=== PATIENT | female | born 1985 | race Caucasian/White ===

== ENCOUNTER 2023-06-03 17:33 | Emergency (ER) | payer OTHER, SELFPAY ==
[2023-06-03 17:56] VITALS: BP 145/72; PULSE 101; RESP 16; TEMP 36.7; O2SAT 100
--- NOTE | 2023-06-03 18:01 | ED.URI ---
HPI - URI/Sore Throat General Chief Complaint: Upper Respiratory Infection Stated Complaint: sorethroat Source: patient and RN notes reviewed History of Present Illness HPI Narrative: 38-year-old female presents to urgent care with complaints of sore throat, fevers, and body aches. Patient states her symptoms started on Friday night while she was on vacation. Patient states that returned today and she continues to have these symptoms. Patient denies any vomiting, diarrhea, chest pain, shortness of breath, ear pain. Patient has been taking Ibuprofen at home. Related Data Home Medications Medication Instructions Recorded Confirmed norethindrone (contraceptive) 0.35 0.35 mg PO DAILY 06/03/23 06/03/23 mg tablet (Denita) Allergies Allergy/AdvReac Type Severity Reaction Status Date / Time Sulfa (Sulfonamide AdvReac Mild Rash Verified 06/03/23 18:05 Antibiotics) Review of Systems Review of Systems: Pertinent positives and pertinent negatives per HPI. PMFSH Comments At the time of my signature, I reviewed and agree with the nursing past medical, surgical, social, and family history. There is no relevant family history pertinent to the patient complaint. Exam Narrative: GENERAL: This is a well-nourished, well-developed patient, in no apparent distress. HEAD: normocephalic, atraumatic. EYES: Sclera clear/white. Vision is grossly intact. EARS: External ears normal, auditory canals clear and without drainage, TMs normal without perforation. Hearing grossly intact. NOSE: External nose normal with no obvious nasal discharge, nares without redness, no rhinorrhea. THROAT: Mucous membranes moist, posterior pharynx erythremic. no exudate NECK: Neck supple, non-tender without lymphadenopathy, masses or thyromegaly. CARDIOVASCULAR: Regular rate and rhythm without murmurs, gallops, or rubs. RESPIRATORY: Clear to auscultation. Breath sounds equal bilaterally. No wheezes, rales, or rhonchi. GASTROINTESTINAL: Abdomen soft, non-tender, nondistended. Bowel sounds are active. No hepato-splenomegaly, or palpable masses. No guarding. SKIN: warm, intact with no suspicious lesions or rash, good texture and turgor. NEURO: awake, alert, and oriented to person, place and time. There were no obvious focal neurologic abnormalities. Course Course Level of Care: Express Care Visit Vital Signs Vital signs: Vital Signs Temperature 98.1 F 06/03/23 17:56 Pulse Rate 101 H 06/03/23 17:56 Respiratory Rate 16 06/03/23 17:56 Blood Pressure 145/72 H 06/03/23 17:56 Pulse Oximetry 100 06/03/23 17:56 Oxygen Delivery Room Air 06/03/23 17:56 Temperature 98.1 F 06/03/23 17:56 Pulse Rate 101 H 06/03/23 17:56 Respiratory Rate 16 06/03/23 17:56 Blood Pressure 145/72 H 06/03/23 17:56 Pulse Oximetry 100 06/03/23 17:56 Oxygen Delivery Room Air 06/03/23 17:56 reviewed MDM - URI/Sore Throat MDM Narrative Medical decision making narrative: After 24 hours on antibiotics throw tooth brush away and start using a new one. Increase your Vitamin C. Do not share drinks. Take Motrin alternating with Tylenol for pain and/or fever alternating every 4 hours. Increase fluids, avoid caffeine. Take a probiotic daily or eat a low sugar yogurt while taking the antibiotic. Follow up with Primary provider if not getting better this week Differential Diagnosis Differential diagnosis: Likely upper respiratory infection, viral infection and pharyngitis Lab Data Attestation: I reviewed the patient's lab results. Labs: Strep Screen Positive Group A Strep *(Reference Range: Negative)* Critical Care Time Critical Care Time Critical Care Time: No Discharge Plan Discharge Clinical Impression: Pharyngitis Qualifiers: Pharyngitis/tonsillitis etiology: streptococcus Qualified Code(s): J02.0 - Streptococcal pharyngitis Patient Disposition: Home, S
== END 2023-06-03 18:16 | disposition home or self-care (01) ==
PROVIDERS: Emergency Provider Nurse Practitioner Family
DX: J02.0 Streptococcal pharyngitis (principal); Z86.16 Personal history of COVID-19
CPT/HCPCS: 87880; 99203; G0463

== ENCOUNTER 2024-10-23 11:32 | Emergency (ER) | payer OTHER, SELFPAY ==
--- NOTE | 2024-10-23 11:51 | ED_ITS ---
HPI - Female Genitourinary General Chief complaint: Urogenital-Female Stated complaint: Uti symptoms Time Seen by Provider: 10/23/24 11:40 Source: patient Mode of arrival: ambulatory Limitations: no limitations History of Present Illness HPI Narrative: Patient is a 39-year-old female who presents with 1 week of burning with urination, frequency and suprapubic pressure. Denies any fever, chills, nausea, vomiting, diarrhea, flank pain. MD elicited complaint: dysuria Related Data Home Medications ?Medication ?Instructions ?Recorded ?Confirmed ?Last Taken ?Type drospirenone (contraceptive) 4 mg 4 mg PO DAILY 10/23/24 Unknown History (28) tablet (Slynd) levothyroxine 50 mcg tablet mcg 10/23/24 Unknown History Allergies Allergy/AdvReac Type Severity Reaction Status Date / Time Sulfa (Sulfonamide Allergy Mild Rash Verified 10/23/24 11:58 Antibiotics) codeine AdvReac Mild Gastrointestinal Verified 10/23/24 11:58 Upset Review of Systems Review of Systems: All systems reviewed & are unremarkable except as noted in HPI and below Constitutional: Constitutional: Denies chills, Denies fever(s), Denies headache(s), Denies malaise and Denies weakness Eyes: Eyes: Denies change in vision, Denies eye discharge and Denies irritation ENT: Denies otalgia, Denies headache(s), Denies nasal congestion, Denies nasal discharge, Denies sinus pain and Denies sore throat Cardiovascular: Cardiovascular: Denies chest pain, Denies edema, Denies palpitations and Denies dyspnea Respiratory: Respiratory: Denies cough and Denies dyspnea Gastrointestinal: Gastrointestinal: Denies abdominal pain, Denies diarrhea, Denies nausea and Denies vomiting Genitourinary: Genitourinary: Denies hematuria, Reports nocturia, Reports dysuria, Denies flank pain and Reports urinary urgency Musculoskeletal: Musculoskeletal: Denies back pain and Denies numbness Integumentary/Breasts: Skin/Breast: Denies pruritus and Denies rash Neurologic: Denies headache(s), Denies numbness and Denies weakness Psychiatric: Psychiatric: Reports no additional psychiatric complaints Endocrine: Endocrine: Denies palpitations PMFSH Comments At time of signature, agree with nursing past medical, surgical, social and family history. There is no relevant family history pertinent to the presenting complaint. Exam Const: General: cooperative, healthy appearing, comfortable, no acute distress and well nourished Nutritional Appearance: well nourished Orientation/consciousness: patient oriented x3 HENMT: Head: normocephalic and atraumatic Ears: external ears normal Face/Nose/Sinus: Normal external nose present, Normal nares present and normal facial exam Face and sinus: normal facial exam Eyes: General: appearance normal, both eyes and all related structures Pupils: Equal, round and reactive pupils present EOM: EOMs intact bilaterally Neck: Neck: normal visual inspection, full ROM and supple Chest: Chest palpation & inspection: normal inspection of the chest Resp: Effort & Inspection: normal respiratory effort and able to speak in complete sentences Cardio: Rate: regular rate Rhythm: regular rhythm GI: Inspection: normal to inspection GI Palp: No abdominal tenderness and Yes Soft to palpation : General: Yes no CVA tenderness Back/Spine/Pelvis: Back: no CVA tenderness Skin: General skin exam: normal color and no rashes or lesions noted Neuro: General: patient oriented x3 and moves all extremities Cranial nerves: Yes Equal, round and reactive pupils present Extrem: General: normal to inspection and full ROM Psych: Appearance: grossly normal and well kempt Course Course Emergency Course: Patient is aware of diagnosis, understands and agrees to treatment plan. Anticipatory guidance given. Patient agrees to follow-up as directed and is aware of reasons to seek care at the emergency department. Portions of this record may have been created with voice recognition software Level of Care: Express Care Visit Vital Signs Vital signs: Vital Signs Temperature 36.5 C 10/23/24 11:53 Pulse Rate 83 10/23/24 11:53 Respiratory Rate 10/23/24 11:53 Blood Pressure 144/68 H 10/23/24 11:53 Pulse Oximetry 100 10/23/24 11:53 Oxygen Delivery Room Air 10/23/24 11:53 Temperature 36.5 C 10/23/24 11:53 Pulse Rate 10/23/24 11:53 Respiratory Rate 10/23/24 11:53 Blood Pressure 144/68 H 10/23/24 11:53 Pulse Oximetry 100 10/23/24 11:53 Oxygen Delivery Room Air 10/23/24 11:53 Reviewed MDM - Female Genitourinary MDM Narrative Medical decision making narrative: Exam findings and UA show probable UTI; patient is non-toxic appearing and is in no distress. No CMT, adnexal tenderness, or evidence of pelvic etiology. Patient is appropriate for outpatient treatment and follow-up. Differential Diagnosis Differential diagnosis: Likely urinary tract infection, bacterial vaginosis, trichomoniasis, cervicitis, vaginitis and cystitis Medical Records Attestation: I reviewed the patient's medical records. Lab Data Attestation: I reviewed the patient's lab results. Labs: Lab Results 10/23/24 Range/Units 12:01 POC Urine Color Yellow POC Urine Clarity Cloudy POC Urine pH 7.0 POC Ur Specif [place] 1.015 POC Urine Protein Negative (Negative) POC Ur Glucose (UA) Negative (Negative) POC Urine Ketones Negative (Negative) POC Urine Blood 2+ (Negative) POC Urine Nitrite Negative (Negative) POC Urine Bilirubin Negative (Negative) POC Urine Urobilinogen 0.2 POC U Leukocyte Esteras 1+ (Negative) Discharge Plan Discharge Clinical Impression: Urinary tract infection Qualifiers: Urinary tract infection type: acute cystitis Hematuria presence: with hematuria Qualified Code(s): N30.01 - Acute cystitis with hematuria Patient Disposition: Home, Self-Care Condition: Stable Instructions: Urinary Tract Infection in Women (ED) Additional Instructions: We will send a urine culture to the lab, based on your symptoms and urine dip we will start treatment today. If culture comes back and bacteria is not susceptible to antibiotic, your prescription may change. Your symptoms should improve within a day of starting antibiotics, but you should finish all the antibiotic pills you get. Otherwise your infection might come back Continue with increased water intake. Take Tylenol or ibuprofen as needed for pain or fever. Follow-up with primary care provider for urine recheck or see ER visit if condition worsens with high fever, nausea, vomiting, severe back pain Your blood pressure was elevated above 120/80 today at Urgent Care. This puts you above the threshold for follow up visit with a primary care provider. High blood pressure does not usually cause any symptoms, however it may lead to kidney failure, stroke, heart disease just to name a few if untreated . Many people are anxious when seeing a provider or nurse. As a result, you are not diagnosed with hypertension at this time unless your blood pressure is persistently high at two office visits at least one week apart. Some things that can help lower blood pressure are lifestyle modifications, such as light exercise, decreased salt in diet, and weight loss. It is important to follow up with a PCP about this within 1 week. Patient Language: Arabic Prescriptions: New cephalexin 500 mg capsule 500 mg PO BID 5 Days Qty: 10 0RF phenazopyridine [Pyridium] 200 mg tablet 200 mg PO TID 3 Days Qty: 9 0RF No Action Slynd 4 mg (28) tablet 4 mg PO DAILY levothyroxine 50 mcg tablet Follow-up/Referrals: Miller,Reese [Other] - 3 Days Time of Disposition: 12:47
[2024-10-23 11:53] VITALS: BP 144/68; PULSE 83; RESP 18; TEMP 36.5; O2SAT 100
[2024-10-23 12:05] LABS: EDUAAPPEAR Cloudy; EDUABILI Negative (Negative); EDUABLOOD 2+ (Negative); EDUACOLOR1 Yellow; EDUAGLUCOSE Negative (Negative); EDUAKETONE Negative (Negative); EDUALEUKO 1+ (Negative); EDUANITRATE Negative (Negative); EDUAPROTEIN Negative (Negative); EDUASPGRAVITY 1.015; EDUAUROBILI 0.2
--- OUTSIDE RECORDS SUMMARY | 2024-10-28 08:58 | XMS_ITS | Referral Summary ---
Author Organization [place] [id number] Address [address] [place] [address] Care Team Providers Care Furnace Utility Operator Name Role Phone Reese Bhatt MD Primary Care Provider + Encounters Date Type Department Care Team Description 08/20/2024 11:37 AM CAR DUMPER - 08/20/2024 11:59 PM CAR DUMPER Hospital Encounter [facility] [address] [place] [id number] Other abnormal and inconclusive findings on diagnostic imaging of breast Discharge Disposition: Discharge to home or self care from Last 3 Months Social History Tobacco Use Types Packs/Day Years Used Date Smoking Tobacco: Never Assessed Comments Unknown Sex and Gender Information Value Date Recorded Sex Assigned at Not on file Legal Sex Female 9:44 AM CDT Gender Identity Not on file Sexual Orientation Not on file Last Filed Vital Signs Vital Sign Reading Time Taken Comments Blood Pressure 123/67 07/13/2019 3:59 PM CDT Pulse 93 07/13/2019 3:59 PM CDT Temperature 36.8 ??C (98.3 ??F) 07/13/2019 3:59 PM CD T Respiratory Rate - - Oxygen Saturation 98% 07/13/2019 3:59 PM CDT Inhaled Oxygen Concentration - - Weight 86.2 kg (190 lb) 07/13/2019 3:59 PM CDT Height 157.5 cm (5' 2 ) 08/20/2024 11:47 AM CAR DUMPER Body Mass Index 34.75 07/13/2019 3:59 PM CDT Plan of Treatment Not on file Procedures Procedure Name Priority Date/Time Associated Diagnosis Comments DIAGNOSTIC MAMMOGRAM BILATERAL W ALEX Schedule Routine, Read Routine (OP Routine) 08/20/2024 11:52 AM CAR DUMPER Other abnormal and inconclusive findings on diagnostic imaging of breast from Last 3 Months Results * Diagnostic Mammogram Bilateral W Alex (08/20/2024 11:52 AM CAR DUMPER) Anatomical Region Laterality Modality Breast Bilateral Mammography 08/20/2024 4:47 PM CAR DUMPER Impressions 08/20/2024 4:47 PM CAR DUMPER No evidence to suggest malignancy is seen. ??The tiny nodule in question on the left is consistent with a tiny intramammary lymph node. ??It is unchanged. ??The patient may continue screening mammography as per ACR guidelines. OVERALL FINAL ASSESSMENT: [id number] Electronically signed by: Temitope Ryan M.D. Narrative 08/20/2024 4:47 PM CAR DUMPER EXAMINATION: BILATERAL DIGITAL DIAGNOSTIC MAMMOGRAM AND DIGITAL BREAST TOMOSYNTHESIS HISTORY: Follow-up COMPARISON: Multiple studies dating back to 06/17/2023 TECHNIQUE: ?? Full field digital mammographic views of bilateral rest were performed, including computer aided detection (CAD) and digital breast tomosynthesis (DBT). BREAST PARENCHYMAL COMPOSITION: There are scattered areas of fibroglandular density. MAMMOGRAM FINDINGS: No suspicious calcifications or suspicious masses are seen. ??The tiny nodule posterior upper outer quadrant on the left is consistent with an intramammary lymph node and is stable. ??There is no architectural distortion or skin thickening. ??There is no axillary adenopathy seen. Natalie Gaffney NP IMG MAMMO PROCEDURES Fin al Result from Last 3 Months Insurance [facility] CHOICE [facility] H[facility]/PPO Address: [address] [address] [place] [address] Care Teams Furnace Utility Operator Relationship Specialty Start Date End Date Reese Bhatt MD PCP - General Family Medicine 05/02/23
--- OUTSIDE RECORDS SUMMARY | 2024-10-28 08:58 | XMS_ITS | Data Portability ---
Author Organization [employer] , [facility] Address [address] [place] [address] Assessment No assessment recorded. Plan of Treatment Reminders Order Date Submit Date Provider Last Modified By Organization Details Last Modified Time Details Appointments None recorded. Lab TSH, serum, reflex free T4 2023 024 [employer], [address] [place] [address], [address], 4 10:46:31 T4, free, serum 2023 024 [employer], [address] [place], [address], 4 10:46:33 TSH, serum or plasma 2023 024 [employer] [facility], [address] [place], [address], 4 07:42:41 TSH, serum or plasma 2023 024 [place] [address] [employer] [facility], [address] [place], [address], 4 14:04:08 TSH + free T4, serum 2023 024 [employer], [address] [place] [address], [address], 4 12:40:57 T3, free, serum or plasma 2023 024 [employer], [address] [place], [address], 12:40:58 Referral None recorded. Procedures None recorded. Surgeries None recorded. Imaging MAMMO, diagnostic, digital, unilateral - Left 2023 anen [facility], [address] [facility] [place], [address], 4 09:51:17 US, breast, unilateral - Left, Ultrasound as indicated 2023 zayra castillo [facility], [address] [facility] [place], [address], 4 15:37:29 Medication Orders Slynd 4 mg (28) tablet 2023 [facility] #[id number], [address], [place], [address], 4 10:22:50 Patient TargetsNo targets recorded. Patient Instructions Encounter Date Encounter Id Patient Instructions Last Modified By Organization Details Last Modified Time 12/08/2023 [id number] - Continue takin g Synthroid as prescribed and monitor for any changes in symptoms. - Monitor menstrual cycle on the new control (Splenda) for another month or two and report any changes or concerns. - Await scheduling of diagnostic mammogram appointment and attend the scheduled appointment. - Report any worsening symptoms or new concerns to the healthcare provider. [email or web address] Not available 12/08/2023 14:21:48 Discussed with t liu patient her hypothyroidism, menstrual irregularities, and mammogram follow-up. Reviewed the importance of monitoring her thyroid levels and adjusting her medication as needed. Advised the patient that it may take a few more months for her menstrual cycle to normalize on the new control. Informed the patient that she is due for a follow-up mammogram and will ensure the order is sent and the appointment is scheduled. [email or web address] Not available 12/08/2023 14:21:49 03/08/2024 [id number] - Check levothyroxine levels today and if stable, repeat in six months and then annually. - Choose the most convenient location for follow-up visits, either with the current doctor or the previous one, depending on the patient's preference. [email or web address] Not available 03/15/2024 12:06:17 09/21/2024 [id number] A healthy lifestyle: care instructions [email or web address] Not available 09/21/2024 10:22:48 Following the [employer] Food Guide: Care Instructions [email or web address] Not available 09/21/2024 10:22:48 exercise program : getting started bnotzke Not available 09/21/2024 10:22:48 contraception information bnotzke Not available 09/21/2024 10:22:48 Reason for Referral None Reported. Results Created Date Observation Date Name Description Value Unit Range Abnormal Flag Note LastModifiedBy Organization Detail LastModifiedTime 12/09/19 24 12/09/2023 TSH W/REF JOSE TO FT4 TSH w/reflex to FT4 1.16 mIU/L normal Refer ence Range > or = 20 Years 0.40- 4.50 Pregn chris Range s First trime ster 0.26- 2.66 Secon d trime ster 0.55- 2.73 Third trime ster 0.43- 2.91 NO COLLE CTION DATE RECEI RICK. WE HAVE USED THE DATE THE SPECI MEN WAS RECEI RICK BY THIS LABOR ATORY THE COLLE CTION DATE. IF THIS IS INCOR RECT, PLEAS E CONTA CT CLIEN T SERVI KITTY. PHONE NUMBE R: [phone] Not Available [employer] [facility] [address] [place], [address], 12/09/2023 07:42:40 10/13/19 24 10/14/2023 T4, FREE T4, free 0.99 NG/dL 0.89 - 1.76 normal Not Available [address], [address], 10/14/2023 12:09:28 10/13/19 24 10/14/2023 TSH W/ REFLE X TSH 5.84 mIU/L 0.55 - 4.78 high Refer ence Range Femal e aged 18-Ad ult: 0.55- 4.78 Pregn chris Refer ence Range s First Trime ster 0.26- 2.66 Secon d Trime ster 0.55- 2.73 Third Trime ster 0.43- 2.91 Not Available [facility] [address] [place] [address], [address], 10/14/2023 12:09:29 11/10/19 24 11/11/2023 TSH W/ REFLE X TO T4 TSH 2.17 mIU/L 0.55 - 4.78 normal Refer ence Range Femal e aged 18-Ad ult: 0.55- 4.78 Pregn chris Refer ence Range s First Trime ster 0.26- 2.66 Secon d Trime ster 0.55- 2.73 Third Trime ster 0.43- 2.91 Not Available [address], [address], 11/11/2023 10:46:31 11/10/19 24 11/11/2023 T4, FREE T4, free 1.04 NG/dL 0.89 - 1.76 normal Not Available [facility] [address] [place] [address], [address], 11/11/2023 10:46:32 03/08/20 24 03/09/2024 TSH W/ REFLE X TO FREE, T4 TSH 0.63 mIU/L 0.55 - 4.78 normal Refer ence Range Femal e aged 18-Ad ult: 0.55- 4.78 Pregn chris Refer ence Range s First Trime ster 0.26- 2.66 Secon d Trime ster 0.55- 2.73 Third Trime ster 0.43- 2.91 Not Available [facility] [employer] [address] [place] [address], [address], 03/09/2024 12:32:37 09/21/20 24 09/22/2024 TSH W/ T4, FREE TSH 1.79 mIU/L 0.55 - 4.78 normal Refer ence Range Femal e aged 18-Ad ult: 0.55- 4.78 Pregn chris Refer ence Range s First Trime ster 0.26- 2.66 Secon d Trime ster 0.55- 2.73 Third Trime ster 0.43- 2.91 Not Available [address], [address], 09/22/2024 12:40:57 09/21/20 24 09/22/2024 TSH W/ T4, FREE T4, free 1.46 NG/dL 0.89 - 1.76 normal Not Available [address], [address], 09/22/2024 12:40:57 09/21/20 24 09/22/2024 T3, FREE T3, free 3.0 pg/mL 2.3 - 4.2 normal Not Available [address], [address], 09/22/2024 12:40:58 10/28/19 24 10/28/2023 US, trans vagin al No observ ation record ed. [facility] [address], [facility] [place], [address], 10/30/2023 09:34:17 12/02/19 24 06/17/2023 US, gideon t, compl ete No observ ation record ed. [facility] [address] [facility] [place], [address], 12/09/2023 09:37:08 12/03/19 24 06/17/2023 US, gideon t, compl ete No observ ation record ed. [address] [place], [address], 12/08/2023 15:42:58 01/27/20 24 01/20/2024 MAMMO , diagn ostic , digit al, unila teral No observ ation record ed. [email or web address] [address] [place], [address], 01/31/2024 09:27:02 08/20/20 24 08/20/2024 MAMMO , diagn ostic , digit al, bilat eral No observ ation record ed. [email or web address] [address] , [place], [address], 08/23/2024 15:08:56 Result Notes None recorded. Problems Name Problem SNOMED Code Status Onset Date Resolution Date Notes Provider Name and Address Organization Details Recorded Time Gestatio n period, 34 weeks [id number] Completed 201812/22/2020 34 weeks gestatio n of pregnanc y; Progress : Stable Added By: Michele Garber Add to Current Problems : NO ProblemS tatus: Resolve Not Available [facility] 21:09:04 Gestatio n period, 13 weeks 56583190 Completed 201804/30/2019 13 weeks gestatio n of pregnanc y; Progress : Stable Added By: Jayyln Nieves Add to Current Problems : NO ProblemS tatus: Resolve Not Available [facility] 21:09:06 Gestatio n period, 28 weeks 56057927 Completed 201812/22/2020 28 weeks gestatio n of pregnanc y; Progress : Stable Added By: Fariba Ambriz Add to Current Problems : NO ProblemS tatus: Resolve Not Available [facility] 2 21:09:05 Gestatio n period, 36 weeks 50030044 Completed 201812/22/2020 36 weeks gestatio n of pregnanc y; Progress : Stable Added By: Anup Gutierrez Add to Current Problems : NO ProblemS tatus: Resolve Not Available [facility] 21:09:08 Gestatio n period, 30 weeks 57847785 Completed 201812/22/2020 30 weeks gestatio n of pregnanc y; Progress : Stable Added By: Nany Zamora Add to Current Problems : NO ProblemS tatus: Resolve Not Available [facility] 2 21:09:09 Gestatio n period, 24 weeks 919324868 Completed 201804/30/2019 24 weeks gestatio n of pregnanc y; Progress : Stable Added By: Yesenia Mustafa Add to Current Problems : NO ProblemS tatus: Resolve Not Available [facility] 2 21:09:08 Gestatio n period, 37 weeks 77603745 Completed 201812/22/2020 37 weeks gestatio n of pregnanc y; Progress : Stable Added By: Michele Garber Add to Current Problems : NO ProblemS tatus: Resolve Not Available [facility] 2 21:09:07 Gestatio n period, 9 weeks 577328 Completed 201804/30/2019 9 weeks gestatio n of pregnanc y; Progress : Stable Added By: Rachelle Ayon Add to Current Problems : NO ProblemS tatus: Resolve Not Available [facility] 2 21:09:10 Gestatio n period, 16 weeks 29379981 Completed 201804/30/2019 16 weeks gestatio n of pregnanc y; Progress : Stable Added By: Fariba Ambriz Add to Current Problems : NO ProblemS tatus: Resolve Not Available [facility] 2 21:09:03 Christina ry postpart um mood disturba nce 92843131 Completed 201812/22/2020 Postpart um mood disturba nce; Progress : Stable Added By: Michele Garber Add to Current Problems : NO ProblemS tatus: Resolve Not Available [facility] 2 21:09:08 Uterine size for dates discrepa ncy Completed 201812/22/2020 Uterine size-hill e discrepa ncy, third trimeste r; Progress : Stable Added By: Bill Wilkins Add to Current Problems : NO ProblemS tatus: Resolve Not Available [facility] 2 21:09:14 Pregnanc y, childbir th and puerperi um finding Completed 201812/22/2020 Encounte r for supervis ion of normal first pregnanc y, third trimeste r; Progress : Stable Added By: Michele Garber Add to Current Problems : NO ProblemS tatus: Resolve Not Available [facility] 21:09:12 Pregnanc y, childbir th and puerperi um finding Completed 201804/30/2019 Encounte r for supervis ion of normal first pregnanc y, first trimeste r; Progress : Stable Added By: Jaylyn Nieves Add to Current Problems : NO ProblemS tatus: Resolve Not Available [facility] 2 21:09:07 Gestatio n period, 20 weeks 69571576 Completed 201804/30/2019 20 weeks gestatio n of pregnanc y; Progress : Stable Added By: Jaylyn Nieves Add to Current Problems : NO ProblemS tatus: Resolve Not Available [facility] 2 21:09:11 Pregnanc y, childbir th and puerperi um finding Completed 201804/30/2019 Encounte r for supervis ion of normal first pregnanc y, second trimeste r; Progress : Stable Added By: Yesenia Mustafa Add to Current Problems : NO ProblemS tatus: Resolve Not Available [facility] 2 21:09:08 Lochia finding Completed 201812/22/2020 Encounte r for routine postpart um follow-u p; Progress : Stable Added By: Michele Garber Add to Current Problems : NO ProblemS tatus: Resolve Not Available [facility] 2 21:09:03 Gestatio n period, 38 weeks 19029056 Completed 201812/22/2020 38 weeks gestatio n of pregnanc y; Progress : Stable Added By: Michele Garber Add to Current Problems : NO ProblemS tatus: Resolve Not Available [facility] 2 21:09:05 Single liveborn born in hospital by vaginal delivery [id number] 102 Completed 201812/22/2020 Single liveborn , delivere d vaginall y; Progress : Stable Added By: Jaxon Bruce Add to Current Problems : NO ProblemS tatus: Resolve Not Available [facility] 2 21:09:12 Gestatio n period, 32 weeks 6092319 Completed 201812/22/2020 32 weeks gestatio n of pregnanc y; Progress : Stable Added By: Jaxon Bruce Add to Current Problems : NO ProblemS tatus: Resolve Not Available [facility] 2 21:09:14 Antenata l screenin g Completed 201812/22/2020 Encounte r for antenata l screenin g for Streptoc occus B; Progress : Stable Added By: Anup Gutierrez Add to Current Problems : NO ProblemS tatus: Resolve Encounte r for other specifie d antenata l screenin g; Progress : Stable Added By: Michele Garber Add to Current Problems : NO ProblemS tatus: Resolve; Start Date : 12/17/19 19 Not Available [facility] 2 21:09:02 Antenata l screenin g for malforma tion Completed 201804/30/2019 Encounte r for antenata l screenin g for malforma tions; Progress : Stable Added By: Yesenia Mustafa Add to Current Problems : NO ProblemS tatus: Resolve Not Available [facility] 2 21:09:04 Hypothyr oidism 33797057 Active 2023 Carmella Wild MD [address] [place], [address] , [facility] [employer] [facility] 4 08:18:32 Migraine with aura 1625152 Active 2023 JASMIN GOLDEN DENNISE- [address] [place], [address] , [facility] [employer] [facility] 4 14:46:33 Problem Notes None recorded. Procedures Surgical History Date Name Laterality Status Provider Name and Address Organization Details Recorded Time 4 Most Recent Mammogram completed Neal Burrell [facility] - [facility] 09/21/2024 09:52:26 3 Date of Last Pap Smear completed Sejal Gaffney [facility] 11/10/2023 16:09:43 Imaging Results Imaging Date Name Status LastModified by Organization Details LastModified Time 10/28/2023 US, transvaginal completed iain Olvera [address], [place], [address], 10/30/2023 09:34:17 06/17/2023 US, breast, complete completed [facility] [address] [place], [address], 12/09/2023 09:37:08 06/17/2023 US, breast, complete completed [email or web address] [address] [place], [address], 12/08/2023 15:42:58 01/20/2024 MAMMO, diagnostic, digital, unilateral completed [email or web address] [address] [place], [address], 01/31/2024 09:27:02 08/20/2024 MAMMO, diagnostic, digital, bilateral completed [email or web address] [address] [place], [address], 08/23/2024 15:08:56 Procedure Notes None recorded. Medical Equipment None Reported. Allergies Allergen ID Allergen Name Allergen Category Reaction Reaction Severity Criticality Documentation Date Start Date Code Code System Note Provider Name and Address Organization Details Recorded Time [id number] 3193487x5 2824e codeine sulfate medicatio n Not available Not available Not available 07/27/20212017 68168 RxNorm Sever ity: Moder ate; Not Available Not Available Not Available [id number] 294439815 2643861n2 2824e sulfabenz amide Not available Not available Not available Not available 07/27/20212017 11177 RxNorm Sever ity: Moder ate; Not Available Not Available Not Available [id number] 980751611 1812477s6 2824e Shellfish (substanc e) food,medi cation Not available Not available Not available 07/27/20212018 95334 9006 SNOMED Sever ity: Moder ate; Not Available Not Available Not Available [id number] 661415926 7510750m1 2824e shellfish derived food,medi cation Not available Not available Not available 03/27/2022 62129 UNK Not Available Not Available Not Available [id number] [id number] [id number] 2824e cat dander environme nt Not available Not available Not available 03/27/2022 37737 UNK Not Available Not Available Not Available [id number] 099691242 [id number] 2824e house dust allergeni c extract environme nt,medica tion Not available Not available Not available 03/27/2022 55186 9 RxNorm Not Available Not Available Not Available [id number] 100023850 4728663f3 2824e mold extract environme nt Not available Not available Not available 03/27/2022 02668 8 RxNorm Not Available Not Available Not Available [id number] 621118995 8255999g0 2824e Canis lupus familiari s extract environme nt Not available Not available Not available 03/27/2022 94160 4 RxNorm Not Available Not Available Not Available Medications Name Sig Start Date Stop Date Status Note LastModified by Organization Details LastModified Time on/go covid-19 antigen self-test kit 03/27 completed Not Available Not Available Not Available amoxicill in 500 mg capsule TAKE 1 CAPSULE BY MOUTH EVERY 12 HOURS 10/13 completed Not Available Not Available Not Available azithromy real 250 mg tablet TAKE 2 TABLETS BY MOUTH TODAY, THEN TAKE 1 TABLET DAILY FOR 4 DAYS 03/27 completed Not Available Not Available Not Available miconazol e nitrate 2 % topical cream APPLY TO AFFECTED AREA TWICE A DAY IN THE MORNING AND IN THE EVENING 04/29 completed Not Available Not Available Not Available fluconazo le 150 mg tablet TAKE 1 TABLET BY MOUTH EVERY 72 HOURS FOR 2 DAYS 12/03 completed Not Available Not Available Not Available Lotrisone 1 %-0.05 % topical cream Apply small amount to affected area BID 06/29 completed Lotrison e 0.05%/1% Cream RxNorm: 849207 Allow Substitu tion: True Refill Denied: No Edited by: Kait Roberts) on 06/09/20 Stopped by: Kait Roberts) on 06/29/20 19 Not Available Not Available Not Available meloxicam 15 mg tablet TAKE 1 TABLET BY MOUTH EVERY DAY 10/16 completed Not Available Not Available Not Available ciproflox acin 500 mg tablet TAKE 1 TABLET BY MOUTH TWICE A DAY FOR 3 DAYS 04/29 completed Not Available Not Available Not Available levothyro xine 25 mcg tablet TAKE 1 TABLET BY MOUTH EVERY DAY 12/07 completed Not Available Not Available Not Available Vitamin tablet 12/22 completed Multivit farah RxNorm: 0 Allow Substitu tion: True Refill Denied: No Refill DateOccu rred: 12/17/19 Edited by: Grace Vogel ) on 12/23/19 Stopped by: Grace Vogel ) on 12/23/19 21 Not Available Not Available Not Available prednisol one acetate 1 % eye drops,neeraj pension INSTILL 1 DROP INTO BOTH EYES 4 TIMES A DAY 03/27 completed Not Available Not Available Not Available ciproflox acin 0.3 % eye drops INSTIL 2 DROP INTO THE EYE(S) EVERY4 HOURS FOR 7 DAYS 03/27 completed Not Available Not Available Not Available levothyro xine 50 mcg tablet TAKE 1 TABLET BY MOUTH EVERY DAY active Not Available Not Available No t Available azelastin e 137 mcg (0.1 %) nasal spray INSTILL 2 SPRAYS INTO EACH NOSTRIL TWICE A DAY 04/29 completed Not Available Not Available Not Available epinephri ne 0.3 mg/0.3 mL injection , auto-inje ctor USE IN CASE OF EMERGENC Y active Not Available Not Available No t Available methylpre dnisolone 4 mg tablets in a dose pack TAKE 6 TABLETS ON DAY 1 DIRECTED ON PACKAGE AND DECREASE BY 1 TAB EACH DAY FOR A TOTAL OF 6 DAYS 12/03 completed Not Available Not Available Not Available albuterol sulfate HFA 90 mcg/actua tion aerosol inhaler INHALE 2 PUFFS BY MOUTH EVERY 4 HOURS NEEDED active Not Available Not Available No t Available norethind kyle (contrace ptive) 0.35 mg tablet TAKE 1 TABLET BY MOUTH EVERY DAY 10/28 completed Not Available Not Available Not Available fluticaso ne propionat e 50 mcg/actua tion nasal spray,neeraj pension INSTILL 2 SPRAYS INTO WACH NOSTRIL EVERY DAY 04/29 completed Not Available Not Available Not Available ipratropi um bromide 21 mcg (0.03 %) nasal spray USE 2 SPRAYS IN EACH NOSTRIL TWICE A DAY 03/27 completed Not Available Not Available Not Available Ortho Tri-Cycle n (28) 0.18 mg(7)/0.2 15 mg(7)/0.2 5 mg(7)-35 mcg tablet Take 1 tablet(s ) by mouth daily as directed . 12/16 completed Ortho Tri-Cycl en 28 Triphasi c Tablet RxNorm: 662602 Allow Substitu tion: True Refill Denied: No Not Available Not Available Not Available tobramyci n 0.3 %-dexamet hasone 0.1 % eye drops,neeraj pension INSTILL 1 DROP INTO BOTH EYES 4 TIMES A DAY 04/29 completed Not Available Not Available Not Available breast pump For use of lactatin g mother 12/22 completed breast pump Allow Substitu tion: True Refill Denied: No Edited by: Grace Vogel ) on 12/23/19 21 Stopped by: Grace Vogel ) on 12/23/19 21 Not Available Not Available Not Available Zyrtec 11/10 completed Zyrtec RxNorm: 04217 Allow Substitu tion: True Refill Denied: No Refill DateOccu rred: 12/19/19 18 Edited by: Kait Roberts) on 06/09/20 19 Stopped by: Kait Roberts) on Not Available Not Available Not Available Advair HFA 45 mcg-21 mcg/actua tion aerosol inhaler 10/16 completed Advair HFA 45-21 mcg/actu ation Inhalati on HFA Aerosol Inhaler RxNorm: 627570 Allow Substitu tion: True Refill Denied: No Refill DateOccu rred: 12/19/19 18 Edited by: Caty Browning ) on 08/25/20 19 Stopped by: Caty Browning ) on Not Available Not Available Not Available Zyrtec 10 mg capsule Take by oral route. active Not Available Not Available No t Available Estarylla 0.25 mg-35 mcg tablet take 1 tablet by oral route once daily 10/13 completed Not Available Not Available Not Available Slynd 4 mg (28) tablet Take 1 tablet every day by oral route. 2023 active Not Available Not Available Not Avai labheidi Vitals Date Recorded Body height Provider Name an d Address Organization Details Last Updated DateTime 11/10/2023 157.48 cm Sejal Gaffney [facility] - [facility] 11/10/2023 15:55:14 Date Recorded Body mass index (BMI) Body weight Provider Name and Address Organization Details Last Updated DateTime 11/10/2023 26.7 kg/m2 73370.49 g [place]al [place]ney [place] [facility] 11/10/2023 16:09:09 Date Recorded Body temperature Provider Name a nd Address Organization Details Last Updated DateTime 11/10/2023 97.6 [degF] Sejal Gaffney MD - [facility] 11/10/2023 16:09:14 Date Recorded Body height Provider Name an d Address Organization Details Last Updated DateTime 12/08/2023 157.48 cm Valentina Nan MD - [facility] 12/08/2023 13:50:53 Date Recorded Body height Provider Name an d Address Organization Details Last Updated DateTime 03/08/2024 157.48 cm Tom Louise [place] [facility] 03/08/2024 15:32:21 Date Recorded Body mass index (BMI) Body weight Provider Name and Address Organization Details Last Updated DateTime 03/08/2024 24.5 kg/m2 08498.1 g Tom [place] [facility] 03/08/2024 15:38:25 Date Recorded Body height Provider Name an d Address Organization Details Last Updated DateTime 05/19/2024 157.48 cm Glenmichaelwilfredo Indra [place] [facility] 05/19/2024 14:21:01 Date Recorded Body mass index (BMI) Body weight Provider Name and Address Organization Details Last Updated DateTime 05/19/2024 25.2 kg/m2 57125.75 g Glenmichaelwilfredo Indra [place] [facility] 05/19/2024 14:29:42 Date Recorded Body temperature Provider Name a nd Address Organization Details Last Updated DateTime 05/19/2024 97.2 [degF] Neal Burrell [place] [facility] 05/19/2024 14:29:46 Date Recorded Body height Provider Name an d Address Organization Details Last Updated DateTime 09/21/2024 157.48 cm Neal Burrell [facility] - [facility] 09/21/2024 09:49:41 Date Recorded Systolic blood pressure Diastolic blood pressure Provider Name and Address Organization Details Last Updated DateTime 11/10/2023 118 mm[Hg] 72 mm[Hg] Sejla Monroelister MD - [facility] 11/10/2023 16:09:05 Date Recorded Systolic blood pressure Diastolic blood pressure Provider Name and Address Organization Details Last Updated DateTime 12/08/2023 122 mm[Hg] 74 mm[Hg] Valentina Montana MD - [facility] 12/08/2023 13:54:20 Date Recorded Systolic blood pressure Diastolic blood pressure Provider Name and Address Organization Details Last Updated DateTime 03/08/2024 118 mm[Hg] 72 mm[Hg] Tom [place] MD - [facility] 03/08/2024 15:38:14 Date Recorded Systolic blood pressure Diastolic blood pressure Provider Name and Address Organization Details Last Updated DateTime 05/19/2024 122 mm[Hg] 72 mm[Hg] Neal Burrell [facility] 05/19/2024 14:29:29 Social History Question Answer Notes LastModified by Organizat ion Details LastModified Time Tobacco Smoking Status [facility] 03/27/2022 16:35:50 What Is Your Level Of Alcohol Consumption? Occasional Information not available 03/27/2022 Are You Blind Or Do You Have Difficulty Seeing? No Information not available 03/27/2022 Are You Currently Employed? Yes [email or web address] Information not available 09/21/2024 Are You Deaf Or Do You Have Serious Difficulty Hearing? No Information not available 03/27/2022 What Type Of Diet Are You Following? REGULAR Information not available 03/27/2022 Do You Or Have You Ever Used E-cigarettes Or Vape? Never Used Electronic Cigarettes Information not available 03/27/2022 How Many Children Do You Have? 1 [email or web address] Information not available 10/16/2022 What Is Your Relationship Status? Information not available 03/27/2022 Are You Sexually Active? Yes Information not available 03/27/2022 Do You Use Any Illicit Or Recreational Drugs? No Information not available 03/27/2022 Do You Or Have You Ever Used Any Other Forms Of Tobacco Or Nicotine? No [email or web address] Information not available 12/03/2022 Sex: Unknown Functional Status Question Answer Note LastModified by Organizat ion Details LastModified Time What is your exercise level? Occasional Information not available 03/27/2022 Mental Status None recorded. Family History Relationship Description Onset Age of this Age Resolved Age Notes LastModified by Organization Details LastModified Time Paternal Aunt Malignant tumor of breast [email or web address] Not available 2023 09:34:42 Unspecified Relation Malignant tumor of breast Not available 03/07 16:35:43 Medical History Condition Response Asthma Y Hypothyroidism Y Seasonal allergies Y Gynecological History Statement/Question Response Flow Light Date of last HPV 04/28/2023 Date of LMP 09/01/2024 HPV Vaccine N Duration of Flow (days) 21 Most Recent Mammogram 08/20/2024 Current Control Method BCPs Age at Menarche 14 Date of Last Colonoscopy Most Recent Bone Density Frequency of Cycle (Q days) Inconsistent Date of Last Pap Smear 04/28/2023 Obstetrics History GPAL:G 1 P 1 0 0 1 Type Value Multiple Births 0 Full Term 1 Induced 0 Spontaneous 0 Premature 0 Living 1 Ectopics 0 Total 1 Past Encounters Encounter ID Performer Location Encounter Start Date Encounter Closed Date Diagnosis/Indication Diagnosis SNOMED-CT Code Diagnosis ICD10 Code Diagnosis Note [id number] Kimberly Laurent CNM [facility] [address] [place] [address] 03/27/2022 16:29:04 03/27/2022 17:33:36 Gynecologic examination 10398426 Z01.419 Surveillan ce of contraception 413793349 Z30.40 [facility] 770923257 Z30.09 [id number] ELVIRA HAMILTON MD [facility] [address] [place] [address] 10/16/2022 10:05:11 10/16/2022 11:31:33 Candidiasis of skin 12130821 B37.2 Breast problem 004597991 N64.9 [id number] ELVIRA HAMILTON MD [facility] [address] [place] [phone] 12/03/2022 16:50:25 12/04/2022 14:41:28 Breast problem 823442800 N64.9 [id number] Kimberly Laurent CNM [facility] [address] [place] [address] 04/29/2023 09:03:27 04/29/2023 17:15:08 Gynecologic examination 93085947 Z01.419 Screening for malignant neoplasm of cervix 482166349 Z12.4 Surveillan ce of contraception 852725512 Z30.[address] [facility] care education 733108447 Z30.09 Experienci ng migraines with aura, will switch OCP to progestero ne only Depression screening 171 456026 Z13.31 Surveillan ce of oral contraception 223705316 Z30.41 Pain of breast 55403143 N64.4 [id number] Kimberly Laurent CNM [address] [address] 10/13/2023 12:06:41 10/13/2023 16:58:52 Loss of hair 682220510 L65.9 Abnormal u terine bleeding 4406465885 9100 N93.9 Reports break through bleeding with norethindr one. Will trial switch to slynd as pt is not estrogen candidate and does not want IUD, nexplanon, or depo. [id number] Kimberly Laurent CNM [facility] [address] [place] [address] 10/28/2023 15:26:48 10/29/2023 12:00:09 Abnormal uterine bleeding 8440381746 9100 N93.9 Ultrasound results reviewed. Will continue slynd. Hypothyroidism 55696760 E03.9 Followup in 2 weeks for labs if not seen endocrine by then [id number] Kimberly Laurent CNM [address] [address] 11/10/2023 15:50:24 11/10/2023 17:32:44 Hypothyroidism 47932442 E03.9 await results for titration [id number] Carmella Wild MD [address] [address] 12/08/2023 13:49:28 12/08/2023 17:43:01 Hypothyroidism 85287733 E03.9 Synthroid 50 mcg. Repeat TSH. Await results. Mammography abnormal 168 911388 R92.8 Surveillan ce of contraception 417765271 Z30.41 continue Slynd. Patient reports having plenty of refills. [id number] Carmella Wild MD [address] [address] 03/08/2024 15:23:18 03/08/2024 16:04:43 Hypothyroidism 98171005 E03.8 The patient has achieved a stable level of levothyrox ine, but it is suggested to check the levels once more to ensure stability, as thyroid levels can fluctuate. The patient is advised to have their thyroid levels checked every six months for a while and then annually once the levels are consistent ly stable. Additional diagnosis detail: Other specified hypothyroi dism [id number] JASMIN GOLDEN [address] [address] 05/19/2024 14:18:29 05/19/2024 17:27:16 Hypothyroidism 10678344 E03.8 Migraine with aura 98674 06 G43.109 Contracept sylvia use education 57619336 Z30.09 Contracept sylvia counseling : Discussed options including OCPs, NuvaRing, Nexplanon, hormonal and copper IUDs. Discussed risks, efficacy, non contracept sylvia benefits, and side effects of each option, including risk of VTE with hormonal contracept ion and uterine perforatio n, expulsion, infection with IUD. Pt can only use progestero ne only method due to hx of migraine with aura. Pt declines Depo, IUD, or Nexplanon. Mid-cycle bleeding 92265 0006 N92.0 Pt has been on SLYND since October. Reports that she will get a full 7 day period during the middle of the pill pack. States during her period week she will have light spotting. Pt will try to skip period week and continue to new pack. Sal murillo thirty minutes spent with patient in consultati on (>50% face-to-fa ce). Patient labs and notes were reviewed. Patient questions were answered. Additional patient care was ann mauro [id number] JASMIN GOLDEN [facility] [address] [place] [address] 09/21/2024 09:34:08 09/21/2024 11:36:11 Gynecologic examination 61593025 Z01.419 Patient is an establishe d patient who presents for a gynecologi james Annual Exam. The patient denies any changes in her medical history. The patient denies any changes in her family medical history. 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 She is satisfied with her current method, refills sent. Pap History:Antwan cox is not due for a pap smear; 2022 HPV-, NILM Breast History:Antwan cox denies breast symptoms. Education on Breast Self Awareness given.Mamm ogram: Pt had abnormal mammogram; follow up was done in August 2024. Cleared for annual screening. Patient is regularly seen by PCP for preventati ve care: Yes Screening for malignant neoplasm of cervix 343475986 Z12.4 ASCCP guidelines reviewed with patient. Pap Hx: No pap collected today. Pt states understand ing and is amenable to POC. Contracept ion education 111951349 Z30.09 Contracept sylvia counseling : Discussed options including OCPs, NuvaRing, Nexplanon, hormonal and copper IUDs. Discussed risks, efficacy, noncontrac eptive benefits, and side effects of each option, including risk of VTE with hormonal contracept ion and uterine perforatio n, expulsion, infection with IUD. Depression screening 171 380709 Z13.31 See PHQ-9 Hypothyroidism 15424286 E03.8 Health Concerns Section Related Observation LastModified by Organization Detai ls LastModified Time None Recorded Concern Status LastModified by Organization Details LastModified Time None Recorded Advance Directives Directive None Recorded Payers Encounter Date Sequence Insurance Name Policy Number Policy Bear Covered Member ID Bear Member ID Guarantor Name 11/10/2023 1 [facility] [id number] Kimberly Dennis [id number] Kimberly Mendez Seiber 12/08/2023 1 [facility] [id number] Kimberly Byers Seiber [id number] Kimberly Mendez Seiber 03/08/2024 1 [facility] [id number] Kimberly Byers Seiber [id number] Kimberly Mendez Seiber 05/19/2024 1 [facility] [id number] Kimberly Byers Seiber [id number] Kimberly Mendez Seiber 09/21/2024 1 [facility] [id number] Kimberly Byers Seiber [id number] Kimberly Dennis Notes Date Note Type Note Provider Name and Address Organization Details Recorded Time 11/10/2023 text/html Pt is here to f/ u on hypothyroid labs. Pt states they have not got her into endocrine yet. Kimberly Laurent CNM [address] [place] [address], [phone], [facility] 11/10/2023 17:08:25 12/08/2023 text/html Kimberly 38 y/o here for f/u on thyroid medication, she is currently on Levothyroxine 50 mcg, still unable to get in with specialist, needs refill on medication. Patient is a 38-year-old female who presented today with concerns about her hypothyroidism and the related symptoms. She has been experiencing hair loss and having two periods a month. She has been on thyroid medication for two months and has noticed some improvement, but not complete resolution of her symptoms. She is currently taking 50 mcg of Synthroid. She recently switched her control to Slynd due to concerns that her previous control might be contributing to her menstrual irregularities. She is still having two periods a month, but they are light and last for about seven days. She had an ultrasound, but nothing significant was found. She is due for a mammogram follow-up since a small finding was noted in June 2023. She is currently awaiting the appointment for her diagnostic mammogram. Carmella Wild MD [address] [place] [address], [phone], [facility] [employer] 12/08/2023 16:03:36 03/08/2024 text/html Kimberly 39 y/o is here to follow up on thyroid and slynd medications. She reports doing better on medications. She reports having some headaches and dizziness and still having some hair loss. She has no other concerns as of today. The patient is a 39-year-old female who has been experiencing headaches, which she inquires about the potential relation to her fluoxetine and levothyroxine medications. There is no specific information on the onset, duration, or severity of the headaches, and it is not mentioned whether any treatment or medication has been used to alleviate them. The patient has been on levothyroxine and fluoxetine, with recent adjustments to levothyroxine levels. The patient reports no major difference in her symptoms, but her insurance covers the costs of her medications. She has previously visited another doctor for an initial consultation on levothyroxine. Carmella Wild MD [address] [place] [address], [phone], [facility] [employer] 03/15/2024 12:06:21 05/19/2024 text/html Abnormal BleedingReported bypatient.Onset/Timing :new onset bleeding Quality:spotting Context:current contraception: (Slynd)Notes:Pt had a normal cycle for 3 days and started back spotting again. Pt had a normal cycle for 3 days and started back spotting again. She has also complained about losing abnormal amounts of hair. ROB RINCON-MELY [address] [place] [address], [phone], [facility] [employer] 05/19/2024 14:49:27 09/21/2024 text/html Annual GYNReport ed bypatient.Menstrual cycle:Normal menses Urinary symptoms:No hematuria; No incontinence Vulva:No genital lesion Vagina:Normal vaginal discharge Breast:No breast pain; No breast lump; No nipple discharge Sexual complaints:No sexual complaints; No pain during intercourse; Normal libido Menopausal Symptoms:No menopausal symptoms; Normal vaginal lubrication Psychological symptoms:No depression; No anxiety; No PMDD Kimberly is here for an annual exam. Pt LMP was 09/01/24. She uses bcp's for contraceptive. She had her last pap in . Pt scored 2 on her PHQ9. No additional issues. JASMIN GOLDEN, DENNISE- [address] [facility], [place], [phone], [facility] 09/21/2024 10:24:21 OBGyn Episode Ob Episode Information Episode Created Date Number of Fetuses Patient Bloodtype Patient rh Status Prepregnancy Weight lbs Domestic Partner Domestic Partner Phone Father Name Adoption Counselor Status 12/21/19 22 1 CLOSED Fetus Data First Name Last Name Admitted to NICU Weight (g) Sex Living Outcome Pediatric Complications Fetus ID Race Codes Race Delivery Type 3175.14 4 F Full Term [id number] Roc Calculation Initial Roc Date Initial Exam Date Initial Exam Provider Initial Ultrasound Date Last Menstrual Period Date Ultra Sound Weeks Gestation 0 Eighteen To Twenty Week Roc Update Ultra Sound Date Fundal Height At Umbil Quickening Date Ultra Sound Latest Weeks Gestation Final Roc Confirmed By Final Roc Confirmed Date Final Roc Date Ultra Sound Latest Days Gestation 0 0 Menstrual History Last Menstrual Date Menses Monthly On Bcp Conception Prior Menses Frequency Hcg Plus Date Menarche Onset Age Delivery Information Delivery Date Delivery Type Labor Anesthesia Weeks Gestation Incision Type Labor Labor Length Hrs Delivered By Post Complications Tubal Sterilization Discharge Date Comments 9 38.6 false Discharge Information Feeding Method Contraceptive Method Maternal HG B and HCT Levels
--- OUTSIDE RECORDS SUMMARY | 2024-10-28 08:58 | XMS_ITS | Clinical Summary ---
Author Organization [place] [id number] [facility] Address [address] [place] [address] Care Team Providers Care Rejector Name Role Phone Reese Bhatt MD Primary Care Provider + Encounters Date Type Department Care Team Description 08/20/2024 11:37 AM WASH TANK TENDER - 08/20/2024 11:59 PM WASH TANK TENDER Hospital Encounter [facility] [address] [place] [phone] Other abnormal and inconclusive findings on diagnostic imaging of breast Discharge Disposition: Discharge to home or self care from Last 3 Months Family History Medical History Relation Name Comments Breast cancer Father's Sister Ovarian cancer Neg Hx Thyroid cancer Neg Hx Relation Name Status Comments Father's Sister Social History Tobacco Use Types Packs/Day Years Used Date Smoking Tobacco: Never Assessed Comments Unknown Sex and Gender Information Value Date Recorded Sex Assigned at Not on file Legal Sex Female 9:44 AM CDT Gender Identity Not on file Sexual Orientation Not on file Obstetrics History Para Term AB IAB SAB Ectopic Multiple Livin g Live Births 1 1 1 Date Outcome GA Total Labor Labor/2nd/3rd Weight Sex Type Anes PTL Cyndy A1 A5 Name Clin Term Last Filed Vital Signs Vital Sign Reading [...] cm (5' 2 ) 08/20/2024 11:47 AM WASH TANK TENDER Body Mass Index 34.75 07/13/2019 3:59 PM CDT Plan of Treatment Health Maintenance Due Date Last Done Comments Cervical Cancer Screening 1986 Depression Screening 1986 Hepatitis C Screening 1986 Varicella Vaccines (1 of 2 - 13+ 2-dose series) 1999 Hepatitis B Screening 02/25/2004 Regular Well Visit/Exam 18-64 02/25/2004 Covid-19 Vaccine (2023-2 5 season) 2024 11/06/2021, 06/06/2021, 05/16/2021 Influenza Vaccine (#1) 2024 06/17/2019 DTaP/Tdap/Td Vaccine (2 - Td or Tdap) 06/17/2029 06/17/2019 HPV Vaccines Aged Out No longer eligi ble based on patient's age to complete this topic Pneumococcal vaccine <65 Aged Out No longer eligible based on patient's age to complete this topic Procedures Procedure Name Priority Date/Time Associated Diagnosis Comments DIAGNOSTIC MAMMOGRAM BILATERAL W ALEX Schedule Routine, Read Routine (OP Routine) 08/20/2024 11:52 AM WASH TANK TENDER Other abnormal and inconclusive findings on diagnostic imaging of breast from Last 3 Months Results * Diagnostic Mammogram Bilateral W Alex (08/20/2024 11:52 AM WASH TANK TENDER) Anatomical Region Laterality Modality Breast Bilateral Mammography 08/20/2024 4:47 PM WASH TANK TENDER Impressions 08/20/2024 4:47 PM WASH TANK TENDER No evidence to suggest malignancy is seen. ??The tiny nodule in question on the left is consistent with a tiny intramammary lymph node. ??It is unchanged. ??The patient may continue screening mammography as per ACR guidelines. OVERALL FINAL ASSESSMENT: [id number] Electronically signed by: Temitope Ryan M.D. Narrative 08/20/2024 4:47 PM WASH TANK TENDER EXAMINATION: BILATERAL DIGITAL DIAGNOSTIC MAMMOGRAM AND DIGITAL [...] al Result from Last 3 Months Insurance [facility] [place] [address] Care Teams Rejector Relationship Specialty Start Date End Date Reese Bhatt MD PCP - General Family Medicine 05/02/23
== END 2024-10-23 12:54 | disposition home or self-care (01) ==
PROVIDERS: Emergency Provider Nurse Practitioner Family
DX: N30.01 Acute cystitis with hematuria (principal); J45.909 Unspecified asthma, uncomplicated; Z86.16 Personal history of COVID-19; B96.20 Unspecified Escherichia coli [E. coli] as the cause of diseases classified elsewhere
CPT/HCPCS: 81003; 87086; 87186; 99213; G0463